=== PATIENT | female | born 1980 | race Caucasian/White ===

== ENCOUNTER 2016-03-26 10:21 | Emergency (ER) | payer OTHER ==
--- NOTE | 2016-03-26 11:17 | ED CLINICAL REPORT ---
Clinical Report - Physicians/Mid Levels [facility] [address] [place] [place] [address] 03/26/2016 10:25 Patient: PARUL NAGY Time Seen: 11:13 Mar 26 2016. Arrived- By private vehicle. Historian- patient. HISTORY OF PRESENT ILLNESS Chief Complaint: DENTAL PAIN. This started yesterday and is still present and worsening. It was gradual in onset and has been constant. Pain described as mild. No sore throat, nasal discharge, ear pain or swollen jaw or face. No jaw pain or facial pain. She has had toothache. (pt with dental for 24 hours, worsening on left side, has attempted to take motrin otc, with minimal relief.). REVIEW OF SYSTEMS No fever, eye discomfort, cough, nausea or headache. No vomiting, epistaxis or runny nose. All systems otherwise negative, except as recorded above. PAST HISTORY MVP. No history of diabetes mellitus. Additional Surgeries: no known surgeries. Medications: None. Allergies: No Known Drug Allergy. SOCIAL HISTORY Smoker- current status unknown. No alcohol use or drug use. ADDITIONAL NOTES The nursing notes have been reviewed. PHYSICAL EXAM Vital Signs: 03/26/2016 10:35 BP: 127/84. HR: 92. RR: 20. O2 saturation: 99%. Temp: 98.2 F. Pain level now: 6/10. Appearance: Alert. No acute distress. Head: Normal external inspection. Eyes: Pupils equal, round and reactive to light. Conjunctivae and eyelids normal. ENT: Moderate, localized dental decay with gingival tenderness and swelling (lower left third molar). No gingival fluctuance. Ears normal. Nose normal. Pharynx normal. Lips normal. Uvula midline. No trismus. Neck: Normal inspection. Trachea midline. No adenopathy. Neck supple. CVS: Normal heart rate and rhythm. 2/6 mid systolic murmur. Respiratory: No respiratory distress. Breath sounds normal. Skin: Normal skin color. No rash. Neuro: Oriented X 3. PROGRESS AND PROCEDURES Course of Care: 03/26/2016 11:52 BP: 124/77. HR: 70. RR: 18. O2 saturation: 99%. Pain level now: 09/01. Differential Diagnosis: I considered Vincent's angina, peritonsillar abscess, parapharyngeal abscess and cardiac etiology as a possible cause of sore throat in this patient. This is a partial list of diagnoses considered. Above considerations are based on history and physical exam. Disposition: Admitted to Acute Care. CLINICAL IMPRESSION Periapical dental abscess. INSTRUCTIONS (warm salt water rinses). Warnings: GENERAL WARNINGS: Return or contact your physician immediately if your condition worsens or changes unexpectedly, if not improving as expected, or if other problems arise. Specifically return if fever. Prescription Medications: Amoxicillin 500 mg tablets: Take 1 orally every 8 hours for 10 days. Dispense thirty (30). No refills. OTC Medications: Take acetaminophen (Tylenol, Datril, etc.) and ibuprofen (Advil, Nuprin, etc.) according to label instructions. Available over the counter. Follow-up: Follow up with a dentist tomorrow even if well. Call for the next available appointment. Understanding of the discharge instructions verbalized by patient. (Electronically signed by Merari Hoffman P.A.-C 03/26/2016 15:12)
--- NOTE | 2016-03-26 11:17 | ED NURSING NOTES ---
Clinical Report - Nurses [facility] [address] [place] [address] 03/26/2016 10:25 Patient: PARUL NAGY TRIAGE Triage time 10:35. Acuity: LEVEL 4. Chief Complaint: LEFT UPPER and LOWER TOOTHACHE and CHIPPED TOOTH. Alert. No acute distress. SEPSIS SCREEN: Sepsis Screen: negative. Negative (no infection suspected/documented). --10:40 Meghan Wynn R.N. 10:35 03/26/16. BP: 127/84. HR: 92. RR: 20. O2 saturation: 99%. Temp: 98.2 F. Pain level now: 08/02. --10:40 Meghan Wynn R.N. 10:35 03/26/16. BP: 127/84. HR: 92. RR: 20. O2 saturation: 99%. Temp: 98.2 F. Pain level now: 08/02. --10:40 Meghan Wynn R.N. Weight: 81.6 kg stated. Height/Length: 65 inches Per Patient. BMI: 30. --10:38 Meghan Wynn R.N. Medications None. --10:37 Meghan Wynn R.N. Allergies No Known Drug Allergy. --10:37 Meghan Wynn R.N. History Arrived by private vehicle. Historian: patient. No primary care physician. Onset. (2 months ago, off and on). 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 PAST MEDICAL HX: Immunizations: status is unknown. Last normal menstrual period now. ( mitral valve prolapse). SURGERY HX: No history of previous surgery. SOCIAL HX: Light tobacco smoker (cigarette)- less than 1/2 a pack per day. No alcohol use or drug use. FALL RISK ASSESSMENT: Fall risk assessment completed. No fall risk identified. NUTRITIONAL RISK ASSESSMENT: The nutritional risk assessment revealed no deficiencies. FUNCTIONAL ASSESSMENT: Functional assessment: no impairments noted. LEARNING NEEDS ASSESSMENT: The learning needs assessment revealed no barriers. SKIN INTEGRITY ASSESSMENT: Skin integrity risk assessment completed. No skin integrity risk identified. --10:40 Meghan Wynn R.N. The patient has had a toothache. --10:40 Meghan Wynn R.N. Interventions ID band on patient. To room. --10:40 Meghan Wynn R.N. PHYSICAL ASSESSMENT Ambulatory to room. GENERAL / NEURO / PSYCH: Alert. Oriented X 4. Appears in pain and anxious. HEENT: Voice within normal limits. Mucous membranes are pink. RESPIRATORY: Respirations not labored. SKIN: Skin is warm and dry. Normal skin turgor. --10:41 Meghan Wynn R.N. NURSING PROGRESS NOTES Head of bed elevated. Two patient identifiers checked. Call light placed in reach. Side rails up x 1. Bed placed in lowest position. Brakes of bed on. Patient ready for evaluation. --10:41 Meghan Wynn R.N. DISPOSITION / DISCHARGE Condition at departure: unchanged. No learning barriers present. Discharge instructions provided and reviewed with the patient. Reviewed medication(s) side effects, precautions, dosing and course information. Prescription(s) given to the patient. Patient verbalized understanding. Written instructions provided in Panamanian. The patient was discharged home and accompanied by an employee sponsor or advocate and. She left the Emergency Department ambulatory and via private vehicle. Gamb Cutter driving. Medication list reviewed and validated. --11:53 Meghan Wynn R.N. 11:52 03/26/16. BP: 124/77. HR: 70. RR: 18. O2 saturation: 99% on room air. Temp: deferred. Pain level now: 09/01. 10:35 03/26/16. BP: 127/84. HR: 92. RR: 20. O2 saturation: 99%. Temp: 98.2 F. Pain level now: 08/02. --11:53 Meghan Wynn R.N. Locked/Released at 03/26/2016 11:53 by Meghan Wynn R.N.
--- NOTE | 2016-03-26 11:17 | ED CLINICAL REPORT ---
Clinical Report - Physicians/Mid Levels [facility] [address] [place] [address] 03/26/2016 10:25 Patient: PARUL NAGY Time Seen: 11:13 Mar 26 2016. Arrived- By private vehicle. Historian- patient. HISTORY OF PRESENT ILLNESS Chief Complaint: DENTAL PAIN. This started yesterday and is still present and worsening. It was gradual in onset and has been constant. Pain described as mild. No sore throat, nasal discharge, ear pain or swollen jaw or face. No jaw pain or facial pain. She has had toothache. (pt with dental for 24 hours, worsening on left side, has attempted to take motrin otc, with minimal relief.). REVIEW OF SYSTEMS No fever, eye discomfort, cough, nausea or headache. No vomiting, epistaxis or runny nose. All systems otherwise negative, except as recorded above. PAST HISTORY MVP. No history of diabetes mellitus. Additional Surgeries: no known surgeries. Medications: None. Allergies: No Known Drug Allergy. SOCIAL HISTORY Smoker- current status unknown. No alcohol use or drug use. ADDITIONAL NOTES The nursing notes have been reviewed. PHYSICAL EXAM Vital Signs: 03/26/2016 10:35 BP: 127/84. HR: 92. RR: 20. O2 saturation: 99%. Temp: 98.2 F. Pain level now: 6/10. Appearance: Alert. No acute distress. Head: Normal external inspection. Eyes: Pupils equal, round and reactive to light. Conjunctivae and eyelids normal. ENT: Moderate, localized dental decay with gingival tenderness and swelling (lower left third molar). No gingival fluctuance. Ears normal. Nose normal. Pharynx normal. Lips normal. Uvula midline. No trismus. Neck: Normal inspection. Trachea midline. No adenopathy. Neck supple. CVS: Normal heart rate and rhythm. 2/6 mid systolic murmur. Respiratory: No respiratory distress. Breath sounds normal. Skin: Normal skin color. No rash. Neuro: Oriented X 3. PROGRESS AND PROCEDURES Course of Care: 03/26/2016 11:52 BP: 124/77. HR: 70. RR: 18. O2 saturation: 99%. Pain level now: 09/01. Differential Diagnosis: I considered Vincent's angina, peritonsillar abscess, parapharyngeal abscess and cardiac etiology as a possible cause of sore throat in this patient. This is a partial list of diagnoses considered. Above considerations are based on history and physical exam. Disposition: Admitted to Acute Care. CLINICAL IMPRESSION Periapical dental abscess. INSTRUCTIONS (warm salt water rinses). Warnings: GENERAL WARNINGS: Return or contact your physician immediately if your condition worsens or changes unexpectedly, if not improving as expected, or if other problems arise. Specifically return if fever. Prescription Medications: Amoxicillin 500 mg tablets: Take 1 orally every 8 hours for 10 days. Dispense thirty (30). No refills. OTC Medications: Take acetaminophen (Tylenol, Datril, etc.) and ibuprofen (Advil, Nuprin, etc.) according to label instructions. Available over the counter. Follow-up: Follow up with a dentist tomorrow even if well. Call for the next available appointment. Understanding of the discharge instructions verbalized by patient. (Electronically signed by Merari Hoffman P.A.-C 03/26/2016 15:12)
--- NOTE | 2016-03-26 11:17 | ED NURSING NOTES ---
Clinical Report - Nurses [facility] [address] [place] [address] 03/26/2016 10:25 Patient: PARUL NAGY TRIAGE Triage time 10:35. Acuity: LEVEL 4. Chief Complaint: LEFT UPPER and LOWER TOOTHACHE and CHIPPED TOOTH. Alert. No acute distress. SEPSIS SCREEN: Sepsis Screen: negative. Negative (no infection suspected/documented). --10:40 Meghan Wynn R.N. 10:35 03/26/16. BP: 127/84. HR: 92. RR: 20. O2 saturation: 99%. Temp: 98.2 F. Pain level now: 08/02. --10:40 Meghan Wynn R.N. 10:35 03/26/16. BP: 127/84. HR: 92. RR: 20. O2 saturation: 99%. Temp: 98.2 F. Pain level now: 08/02. --10:40 Meghan Wynn R.N. Weight: 81.6 kg stated. Height/Length: 65 inches Per Patient. BMI: 30. --10:38 Meghan Wynn R.N. Medications None. --10:37 Meghan Wynn R.N. Allergies No Known Drug Allergy. --10:37 Meghan Wynn R.N. History Arrived by private vehicle. Historian: patient. No primary care physician. Onset. (2 months ago, off and on). 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 PAST MEDICAL HX: Immunizations: status is unknown. Last normal menstrual period now. ( mitral valve prolapse). SURGERY HX: No history of previous surgery. SOCIAL HX: Light tobacco smoker (cigarette)- less than 1/2 a pack per day. No alcohol use or drug use. FALL RISK ASSESSMENT: Fall risk assessment completed. No fall risk identified. NUTRITIONAL RISK ASSESSMENT: The nutritional risk assessment revealed no deficiencies. FUNCTIONAL ASSESSMENT: Functional assessment: no impairments noted. LEARNING NEEDS ASSESSMENT: The learning needs assessment revealed no barriers. SKIN INTEGRITY ASSESSMENT: Skin integrity risk assessment completed. No skin integrity risk identified. --10:40 Meghan Wynn R.N. The patient has had a toothache. --10:40 Meghan Wynn R.N. Interventions ID band on patient. To room. --10:40 Meghan Wynn R.N. PHYSICAL ASSESSMENT Ambulatory to room. GENERAL / NEURO / PSYCH: Alert. Oriented X 4. Appears in pain and anxious. HEENT: Voice within normal limits. Mucous membranes are pink. RESPIRATORY: Respirations not labored. SKIN: Skin is warm and dry. Normal skin turgor. --10:41 Meghan Wynn R.N. NURSING PROGRESS NOTES Head of bed elevated. Two patient identifiers checked. Call light placed in reach. Side rails up x 1. Bed placed in lowest position. Brakes of bed on. Patient ready for evaluation. --10:41 Meghan Wynn R.N. DISPOSITION / DISCHARGE Condition at departure: unchanged. No learning barriers present. Discharge instructions provided and reviewed with the patient. Reviewed medication(s) side effects, precautions, dosing and course information. Prescription(s) given to the patient. Patient verbalized understanding. Written instructions provided in Com[place]an. The patient was discharged home and accompanied by wind turbine sheet metal worker. She left the Emergency Department ambulatory and via private vehicle. Interactive Media Marketing Specialist driving. Medication list reviewed and validated. --11:53 Meghan Wynn R.N. 11:52 03/26/16. BP: 124/77. HR: 70. RR: 18. O2 saturation: 99% on room air. Temp: deferred. Pain level now: 09/01. 10:35 03/26/16. BP: 127/84. HR: 92. RR: 20. O2 saturation: 99%. Temp: 98.2 F. Pain level now: 08/02. --11:53 Meghan Wynn R.N. Locked/Released at 03/26/2016 11:53 by Meghan Wynn R.N.
--- NOTE | 2016-03-31 11:04 | ED MAR SUMMARY ---
..... Medication Administration Record [facility] [address], [place] [id number] Patient: PARUL NAGY Visit ID: [id number] 36y, F Weight: 81.6 kg Height/Length: 65 in BMI: 30 ALLERGIES: No Known Drug Allergy
--- NOTE | 2016-03-31 11:04 | ED DISCHARGE INSTRUCTIONS ---
Patient: PARUL NAGY General Instructions [facility] VisitID: [id number] [place] [address] 36y, F Registration Date/Time: 03/26/2016 Periapical dental abscess. INSTRUCTIONS (warm salt water rinses). Warnings: GENERAL WARNINGS: Return or contact your physician immediately if your condition worsens or changes unexpectedly, if not improving as expected, or if other problems arise. Specifically return if fever. Prescription Medications: Amoxicillin 500 mg tablets: Take 1 orally every 8 hours for 10 days. Dispense thirty (30). No refills. OTC Medications: Take acetaminophen (Tylenol, Datril, etc.) and ibuprofen (Advil, Nuprin, etc.) according to label instructions. Available over the counter. Follow-up: Follow up with a dentist tomorrow even if well. Call for the next available appointment. Understanding of the discharge instructions verbalized by patient. ADDITIONAL INFORMATION Dental Abscess A dental abscess is an infection of the tooth socket. It often starts with a crack or cavity in the tooth. A pocket of pus forms between the tooth and the bone. The infection causes pain and swelling of the gum, cheek or jaw. The pain is often made worse by drinking hot or cold fluids, or biting on hard foods. Pain may be felt in the facial sinus or in the ear. A severe infection can interfere with swallowing and breathing. In the emergency department or clinic, you will be started on an antibiotic. However, final treatment requires drainage of the pus. This can be done by removing the tooth or performing a root canal. A root canal is done by an oral surgeon and involves drilling an opening in the tooth to drain the pus. After the infection has healed, a crown is placed over the tooth. Home care The following guidelines will help you care for your abscess at home: Avoid hot and cold foods and liquids since your tooth may be sensitive to temperature changes. If your tooth is chipped or cracked, or if there is a large open cavity, applyoil of cloves(available miuf-mor-sgliexd in drug stores) directly to the tooth to reduce pain. Some pharmacies carry an dfuu-qem-aifuajq "toothache kit". This contains oil of cloves and a paste, which can be applied over the exposed tooth to decrease sensitivity. Apply an ice pack (ice cubes in a plastic bag, wrapped in a towel) over the injured area for 20 minutes every 12 hours the first day for pain relief. Continue this 34 times a day until the pain and swelling goes away. You may use acetaminophen or ibuprofen to control pain, unless another medicine was prescribed. If you have chronic liver or kidney disease or ever had a stomach ulcer or GI bleeding, talk with your doctor before using these medicines. An antibiotic will be prescribed. Take it as directed until completed, even if you are feeling better sooner. Follow-up care Follow up as directed with a dentist or oral surgeon. Even though your pain may improve with the treatment given today, only a dentist or oral surgeon can provide full treatment for this problem. When to seek medical care Get prompt medical attention or contact your doctor if any of the following occur: Your face or eyelid becomes swollen or red Pain worsens or spreads to the neck Fever over 100.4F (38.0C) Unusual drowsiness; headache or stiff neck; weakness, or fainting Pus drains from the gum or tooth Difficulty talking, swallowing or breathing Unable to open your mouth wide Dental Pain A crack or cavity in the tooth, which exposes the sensitive inner area of the tooth can cause tooth pain. An infection in the gum or the root of the tooth can cause pain and swelling. The pain is often made worse by drinking hot or cold fluids, or biting on hard foods. Pain may spread from the tooth to the ear or jaw on the same side. Home Care: Avoid hot and cold foods and liquids since your tooth may be sensitive to temperature changes. If your tooth is chipped or cracked, or if there is a large open cavity, apply OIL OF CLOVES (available zmwa-pce-hmdsugg in drug stores) directly to the tooth to reduce pain. Some pharmacies carry an bydd-odb-olenrrn "toothache kit." This contains a paste, which can be applied over the exposed tooth to decrease sensitivity. A cold pack on your jaw over the sore area may help reduce pain. You may use acetaminophen (Tylenol) or ibuprofen (Motrin, Advil) to control pain, unless another medicine was prescribed. [ NOTE: If you have chronic liver or kidney disease or ever had a stomach ulcer or GI bleeding, talk with your doctor before using these medicines.] If you have signs of an infection, an antibiotic will be given. Take it as directed. Follow-Up as directed with a dentist. Your pain may go away with the treatment given. However, only a dentist can fully evaluate and treat the cause and prevent the pain from coming back again. TOOTHACHE IS A SIGN OF DISEASE IN YOUR TOOTH AND SHOULD BE EXAMINED AND TREATED BY A DENTIST. Get Prompt Medical Attention if any of the following occur: Your face becomes swollen or red Pain worsens or spreads to the neck Fever over 100.4 F (38.0 C) Unusual drowsiness; headache or stiff neck; weakness or fainting Pus drains from the tooth Difficulty swallowing or breathing You have been given the following additional information: Tooth Abscess Dental Pain (Electronically signed by Merari Hoffman P.A.-C 03/26/2016 15:12)
--- NOTE | 2016-03-31 11:04 | ED MAR SUMMARY ---
..... Medication Administration Record [facility] [address], [place] [id number] Patient: PARUL NAGY Visit ID: [id number] 36y, F Weight: 81.6 kg Height/Length: 65 in BMI: 30 ALLERGIES: No Known Drug Allergy
--- NOTE | 2016-03-31 11:04 | ED DISCHARGE INSTRUCTIONS ---
Patient: PARUL NAGY General Instructions [facility] VisitID: [id number] [place] [address] 36y, F Registration Date/Time: 03/26/2016 Periapical dental abscess. INSTRUCTIONS (warm salt water rinses). Warnings: GENERAL WARNINGS: Return or contact your physician immediately if your condition worsens or changes unexpectedly, if not improving as expected, or if other problems arise. Specifically return if fever. Prescription Medications: Amoxicillin 500 mg tablets: Take 1 orally every 8 hours for 10 days. Dispense thirty (30). No refills. OTC Medications: Take acetaminophen (Tylenol, Datril, etc.) and ibuprofen (Advil, Nuprin, etc.) according to label instructions. Available over the counter. Follow-up: Follow up with a dentist tomorrow even if well. Call for the next available appointment. Understanding of the discharge instructions verbalized by patient. ADDITIONAL INFORMATION Dental Abscess A dental abscess is an infection of the tooth socket. It often starts with a crack or cavity in the tooth. A pocket of pus forms between the tooth and the bone. The infection causes pain and swelling of the gum, cheek or jaw. The pain is often made worse by drinking hot or cold fluids, or biting on hard foods. Pain may be felt in the facial sinus or in the ear. A severe infection can interfere with swallowing and breathing. In the emergency department or clinic, you will be started on an antibiotic. However, final treatment requires drainage of the pus. This can be done by removing the tooth or performing a root canal. A root canal is done by an oral surgeon and involves drilling an opening in the tooth to drain the pus. After the infection has healed, a crown is placed over the tooth. Home care The following guidelines will help you care for your abscess at home: Avoid hot and cold foods and liquids since your tooth may be sensitive to temperature changes. If your tooth is chipped or cracked, or if there is a large open cavity, applyoil of cloves(available kovs-qnu-kdbzcwx in drug stores) directly to the tooth to reduce pain. Some pharmacies carry an dgov-zdy-zzpjumz "toothache kit". This contains oil of cloves and a paste, which can be applied over the exposed tooth to decrease sensitivity. Apply an ice pack (ice cubes in a plastic bag, wrapped in a towel) over the injured area for 20 minutes every 12 hours the first day for pain relief. Continue this 34 times a day until the pain and swelling goes away. You may use acetaminophen or ibuprofen to control pain, unless another medicine was prescribed. If you have chronic liver or kidney disease or ever had a stomach ulcer or GI bleeding, talk with your doctor before using these medicines. An antibiotic will be prescribed. Take it as directed until completed, even if you are feeling better sooner. Follow-up care Follow up as directed with a dentist or oral surgeon. Even though your pain may improve with the treatment given today, only a dentist or oral surgeon can provide full treatment for this problem. When to seek medical care Get prompt medical attention or contact your doctor if any of the following occur: Your face or eyelid becomes swollen or red Pain worsens or spreads to the neck Fever over 100.4F (38.0C) Unusual drowsiness; headache or stiff neck; weakness, or fainting Pus drains from the gum or tooth Difficulty talking, swallowing or breathing Unable to open your mouth wide Dental Pain A crack or cavity in the tooth, which exposes the sensitive inner area of the tooth can cause tooth pain. An infection in the gum or the root of the tooth can cause pain and swelling. The pain is often made worse by drinking hot or cold fluids, or biting on hard foods. Pain may spread from the tooth to the ear or jaw on the same side. Home Care: Avoid hot and cold foods and liquids since your tooth may be sensitive to temperature changes. If your tooth is chipped or cracked, or if there is a large open cavity, apply OIL OF CLOVES (available lpxb-qfs-eobtked in drug stores) directly to the tooth to reduce pain. Some pharmacies carry an nggc-yqn-ivrtxcn "toothache kit." This contains a paste, which can be applied over the exposed tooth to decrease sensitivity. A cold pack on your jaw over the sore area may help reduce pain. You may use acetaminophen (Tylenol) or ibuprofen (Motrin, Advil) to control pain, unless another medicine was prescribed. [ NOTE: If you have chronic liver or kidney disease or ever had a stomach ulcer or GI bleeding, talk with your doctor before using these medicines.] If you have signs of an infection, an antibiotic will be given. Take it as directed. Follow-Up as directed with a dentist. Your pain may go away with the treatment given. However, only a dentist can fully evaluate and treat the cause and prevent the pain from coming back again. TOOTHACHE IS A SIGN OF DISEASE IN YOUR TOOTH AND SHOULD BE EXAMINED AND TREATED BY A DENTIST. Get Prompt Medical Attention if any of the following occur: Your face becomes swollen or red Pain worsens or spreads to the neck Fever over 100.4 F (38.0 C) Unusual drowsiness; headache or stiff neck; weakness or fainting Pus drains from the tooth Difficulty swallowing or breathing You have been given the following additional information: Tooth Abscess Dental Pain (Electronically signed by Merari Hoffman P.A.-C 03/26/2016 15:12)
--- NOTE | 2016-03-31 11:04 | ED MED RECONCILIATION SUMMARY ---
Patient: PARUL NAGY Medication Reconciliation Report [facility] VisitID: [id number] [address] [place] [address] 36y, F Registration Date/Time: 03/26/2016 Weight: 81.6 kg Height/Length: 65 in. BMI: 30.0 ALLERGIES: No Known Drug Allergy The patient's Home Medications are listed below: NONE. The source(s) of the original Home Medication information: Not obtained. The following Medications were given to the patient in the Emergency Department: None. The following Medications were prescribed to the patient: Take acetaminophen (Tylenol, Datril, etc.) and ibuprofen (Advil, Nuprin, etc.) according to label instructions. Available over the counter. -- Merari Hoffman, P.A.-C Amoxicillin 500 mg tablets: Take 1 orally every 8 hours for 10 days. Dispense thirty (30). No refills. -- Merari Hoffman, P.A.-C
--- NOTE | 2016-03-31 11:04 | ED MED RECONCILIATION SUMMARY ---
Patient: PARUL NAGY Medication Reconciliation Report [facility] VisitID: [id number] [address] [place] [address] 36y, F Registration Date/Time: 03/26/2016 Weight: 81.6 kg Height/Length: 65 in. BMI: 30.0 ALLERGIES: No Known Drug Allergy The patient's Home Medications are listed below: NONE. The source(s) of the original Home Medication information: Not obtained. The following Medications were given to the patient in the Emergency Department: None. The following Medications were prescribed to the patient: Take acetaminophen (Tylenol, Datril, etc.) and ibuprofen (Advil, Nuprin, etc.) according to label instructions. Available over the counter. -- Merari Hoffman, P.A.-C Amoxicillin 500 mg tablets: Take 1 orally every 8 hours for 10 days. Dispense thirty (30). No refills. -- Merari Hoffman, P.A.-C
--- NOTE | 2016-03-31 11:04 | ED ORDER SUMMARY ---
..... Patient: PARUL NAGY OrderSheet [facility] VisitID: [id number] [address] [place] [address] 36y, F Registration Date/Time: 03/26/2016 ORDER SHEET Weight: 81.6 kg (stated) Allergies: No Known Drug Allergy GENERAL ORDERS: Splint (UE) (Right) (Short Arm) (12:01 03/26/2016 EKoroleva P.A.-C) (Cancelled: Other12:01 EKoroleva P.A.-C) CBC w Diff Urgent (12:03 03/26/2016 EKoroleva P.A.-C) (Cancelled: Other12:04 EKoroleva P.A.-C) MEDICATION ORDERS: IV FLUIDS: ORDER SHEET NOTES: [Electronically signed by Merari Hoffman P.A.-C (15:12 03/26/2016)] [Electronically locked/signed by Amber Rosales R.N. (11:04 03/31/2016)]
--- NOTE | 2016-03-31 11:04 | ED ORDER SUMMARY ---
..... Patient: PARUL NAGY OrderSheet [facility] VisitID: [id number] [address] [place] [address] 36y, F Registration Date/Time: 03/26/2016 ORDER SHEET Weight: 81.6 kg (stated) Allergies: No Known Drug Allergy GENERAL ORDERS: Splint (UE) (Right) (Short Arm) (12:01 03/26/2016 EKoroleva P.A.-C) (Cancelled: Other12:01 EKoroleva P.A.-C) CBC w Diff Urgent (12:03 03/26/2016 EKoroleva P.A.-C) (Cancelled: Other12:04 EKoroleva P.A.-C) MEDICATION ORDERS: IV FLUIDS: ORDER SHEET NOTES: [Electronically signed by Merari Hoffman P.A.-C (15:12 03/26/2016)] [Electronically locked/signed by Amber Rosales R.N. (11:04 03/31/2016)]
== END 2016-03-26 11:45 | disposition home or self-care (01) ==
LOC: ED SRH 10:21
DX: K04.7 Periapical abscess without sinus (principal)